=== PATIENT | female | born 1940 | race Caucasian/White ===

== ENCOUNTER 2023-03-09 12:39 | Outpatient (CLI) | payer MEDICARE, SELFPAY ==
--- NOTE | 2023-03-09 12:47 | MM_ITS ---
WS: [id number] BILATERAL 3D TOMOSYNTHESIS DIGITAL DIAGNOSTIC MAMMOGRAPHY WITH CAD CLINICAL INFORMATION: MASS OF LOWER LEDT BREAST HISTORY: Palpable lesion LEFT breast. COMPARISON: 2020 TECHNIQUE: Bilateral CC, MLO, and ML views. FINDINGS: Scattered fibroglandular densities bilaterally. Biopsy marker upper outer LEFT breast posteriorly. Pu nctate calcifications. Vascular calcifications. A few incidental lucent centered calcifications simil ar to previous. Vascular calcification. No definite abnormalities deep to the palpable marker. Ultrasound described below. ULTRASOUND BREAST LEFT TECHNIQUE: Ultrasound left breast focused area of concern. CLINICAL INFORMATION: MASS OF LOWER LEDT BREAST FINDINGS: Ultrasound LEFT breast 8:00-1000 position. No suspicious abnormalities at the area of palpable concer n. However, there is a hypoechoic solid appearing lesion at the 1000 position 5 cm from the nipple which is indeterminate and recommend further evaluation with ultrasound-guided biopsy. This measures 9.1 x 3.6 x 4.6 mm MM/[id number] IMPRESSION: BI-RADS: 4-Suspicious Finding-Biopsy Should Be Considered FOLLOW UP: US Guided Biopsy Recommended Recommend ultrasound-guided biopsy of the LEFT breast lesion 1000 o'clock posit ion
== END 2023-03-09 12:40 | disposition home or self-care (01) ==
PROVIDERS: PCP Registered Nurse; Visit Provider Registered Nurse
DX: N63.25 Unspecified lump in the left breast, overlapping quadrants (principal)
CPT/HCPCS: 76642; 77062; G0279

== ENCOUNTER 2023-03-11 10:43 | Outpatient (CLI) | payer MEDICARE, SELFPAY ==
--- NOTE | 2023-03-11 10:50 | US_ITS ---
WS: [id number] ULTRASOUND-GUIDED LEFT BREAST BIOPSY HISTORY: ABNORMAL MAMMO OF LEFT BREAST COMPARISON: 03/09/2023, 07/22/2021 Procedure, risks and complications are explained to the patient. Medications are reviewed. Consent is obtained. The mass in the LEFT breast is localized with ultrasound. Mass localizes to 10:00, 5 cm from the nipp le. Skin is cleansed with ChloraPrep and anesthetized with 1% buffered lidocaine. Small dermatome is made. Under sterile conditions mass is biopsied with a 14-gauge Achieve needle. Multiple core biopsie s are performed. Material placed in formalin and sent to pathology for review. No complications encou ntered. Breast tissue marker (Bard ultrasound enhanced ribbon): Single. Patient left the radiology suite with no complications. Patient is instructed to return to [facility] with any concerns. US/[id number] IMPRESSION: 1. Uncomplicated core needle biopsy LEFT breast mass biopsy at 10:00. PATHOLOGY: Benign breast tissue with fibroadenomatoid changes and stromal scler osis. No malignancy. RECOMMENDATION: Diagnostic LEFT mammogram follow-up in 6 months.
== END 2023-03-11 10:44 | disposition home or self-care (01) ==
LOC: RAD 10:44
PROVIDERS: PCP Registered Nurse; Visit Provider Registered Nurse
DX: R92.8 Other abnormal and inconclusive findings on diagnostic imaging of breast (principal); N63.22 Unspecified lump in the left breast, upper inner quadrant
CPT/HCPCS: 19083; 88305